=== PATIENT | female | born 1995 | race Caucasian/White ===

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

== ENCOUNTER 2017-03-06 07:52 | Inpatient (IN) | payer OTHER, MEDICAID ==
[2017-04-11] MEDS ORDERED: PRENATAL MVI (14:40)
[2017-04-11] MEDS ORDERED: ZOVIRAX400 MG PO (14:40)
[2017-04-12] VITALS (31 sets, daily range): BP systolic 107–160; BP diastolic 58–88; PULSE 71–109; TEMP 98–99.2
[2017-04-12 10:27] LABS: BASO % 0.3 % (0.0-2.0); EOS # 0.2 (0.0-0.7); EOS % 1.7 % (0-4.0); GRAN # 6.5 (1.4-6.5); GRAN % 71.9 % (42.2-75.2); HEMATOCRIT 38.3 % (35.0-45.0); HEMOGLOBIN 13.2 g/dl (12.0-15.0); LYMPH # 1.6 (1.2-3.4); LYMPH % 17.6 % (20.0-51.0); MEAN CELL VOLUME 92 fl (80.0-95.0); MEAN CORPUSCULAR HEMOGLOBIN 32 pg (26.0-32.0); MEAN CORPUSCULAR HGB CONC 35 g/dl (33.0-37.0); MEAN PLATELET VOLUME 11.2 fl (7.4-10.4); MONO # 0.8 (0.1-0.6); MONO % 8.3 % (1.7-9.3); PLATELET COUNT 199 K/mm3 (130-400); RED BLOOD COUNT 4.18 M/mm3 (4.10-5.30)
[2017-04-13 04:50] VITALS: BP 123/61; PULSE 80; TEMP 98.6
[2017-04-13 07:48] VITALS: BP 125/72; PULSE 73; TEMP 97.9
[2017-04-13] MEDS ORDERED: IBU800 M1 PO (09:19)
[2017-04-13] MEDS ORDERED: PERCOCET 325 MG1 TA2 PO (09:19)
[2017-04-13 12:27] VITALS: BP 124/70; PULSE 92; TEMP 98.1
== END 2017-04-13 16:45 | disposition home or self-care (01) | DRG 775 ==
LOC: LDR → OB 04-12 09:25
PROVIDERS: Student in an Organized Health Care Education/Training Program
PROC: 10E0XZZ Delivery of Products of Conception, External Approach (ICD-10-PCS; principal; 2017-04-12)
PROC: 3E033VJ Introduction of Other Hormone into Peripheral Vein, Percutaneous Approach (ICD-10-PCS; 2017-04-12)
PROC: 0HQ9XZZ Repair Perineum Skin, External Approach (ICD-10-PCS; 2017-04-12)
DX: O41.03X0 Oligohydramnios, third trimester, not applicable or unspecified (principal); O69.81X0 Labor and delivery complicated by cord around neck, without compression, not applicable or unspecified; O26.843 Uterine size-date discrepancy, third trimester; O70.0 First degree perineal laceration during delivery; Z3A.39 39 weeks gestation of pregnancy; Z37.0 Single live birth
CPT/HCPCS: J2590; J7120

== ENCOUNTER 2017-04-11 14:31 | Outpatient (CLI) | payer OTHER ==
[~2017-04-11] VITALS: Ht 162.6 cm; Wt 80.0 kg
[2017-04-11 14:32] VITALS: BP 131/79; PULSE 93; TEMP 97.9
[2017-04-11] MEDS ORDERED: PRENATAL MVI (14:40)
[2017-04-11] MEDS ORDERED: ZOVIRAX400 MG PO (14:40)
== END 2017-04-11 15:05 | disposition home or self-care (01) ==
LOC: LDRO 14:31 → LDR 14:43 → LDRO 15:05 → LDR 15:05
DX: O42.92 Full-term premature rupture of membranes, unspecified as to length of time between rupture and onset of labor (principal); O99.89 Other specified diseases and conditions complicating pregnancy, childbirth and the puerperium; R25.2 Cramp and spasm; Z3A.39 39 weeks gestation of pregnancy
CPT/HCPCS: OP

== ENCOUNTER 2020-10-30 06:55 | Day surgery (SDC) | payer BC, MEDICAID ==
[~2020-10-30] VITALS: Ht 162.6 cm; Wt 72.7 kg
[~2020-10-30 06:55] MED LIST: IBU800 M1 PO; PERCOCET 325 MG1 TA2 PO; PRENATAL MVI; ZOVIRAX400 MG PO
[2020-10-30 07:36] VITALS: BP 119/70; PULSE 76; TEMP 98.8
[2020-10-30 09:10] VITALS: BP 113/70; PULSE 79; TEMP 98.1
--- NOTE | 2020-10-30 09:10 | NUR ---
0910 TRANSPORTED BY CART TO DISCHARGE BAY, ALERT TO SURROUNDINGS, ABLE TO STAND AND AMBULATE TO A RECLINER, MONITORS ON AND ALARMS SET. CALL LIGHT IN REACH, DENIES DISCOMFORT AT THIS TIME, REQUESTING WATER AND A MUFFIN 0920 DR HERE TO REVIEW RESULTS OF COLONOSCOPY, DENIES DISCOMFORT AT THIS TIME.
--- NOTE | 2020-10-30 09:50 | NUR ---
ABLE TO DRESS HERSELF, TAKEN BY WHEELCHAIR TO VEHICLE, SISTER TO DRIVE HER HOME.
== END 2020-10-30 09:50 | disposition home or self-care (01) ==
LOC: SDCO 06:55
DX: K63.5 Polyp of colon (principal); K64.0 First degree hemorrhoids; K62.89 Other specified diseases of anus and rectum; Z20.822 Contact with and (suspected) exposure to COVID-19
CPT/HCPCS: J7120